=== PATIENT | female | born 1965 | race African-American/Black ===

== ENCOUNTER 2024-12-15 23:57 | Emergency (ER) | payer SELFPAY ==
[2024-12-16] MEDS ORDERED: Ketorolac Tromethamine 30 MG (1 mL) VIAL ONE (00:55)
[2024-12-16] MEDS ORDERED: Orphenadrine Citrate 100 MG ER.TAB ONE (00:55)
== END 2024-12-16 02:40 | disposition home or self-care (01) ==
LOC: ERS 23:57
DX: S09.90XA Unspecified injury of head, initial encounter (principal); M54.2 Cervicalgia; V59.9XXA Occupant (driver) (passenger) of pick-up truck or van injured in unspecified traffic accident, initial encounter
CPT/HCPCS: 70450; 72125; 96372; J1885